=== PATIENT | female | born 1935 | race Caucasian/White ===

== ENCOUNTER 2023-06-10 09:05 | Outpatient (CLI) | payer OTHER | END 2023-06-10 09:13 | disposition home or self-care (01) | LOC: RAD 09:05 | PROVIDERS: ATTEND Orthopaedic Surgery | DX: S52.532A Colles' fracture of left radius, initial encounter for closed fracture (principal) ==

== ENCOUNTER 2023-06-24 09:45 | Outpatient (CLI) | payer OTHER | END 2023-06-24 09:47 | disposition home or self-care (01) | LOC: RAD 09:45 | PROVIDERS: ATTEND Orthopaedic Surgery | DX: S52.532A Colles' fracture of left radius, initial encounter for closed fracture (principal) ==